=== PATIENT | male | born 1955 | race Two or more races ===

== ENCOUNTER 2024-12-04 05:58 | Day surgery (SDC) | payer MEDICARE, OTHER, SELFPAY ==
[2024-12-04] VITALS (11 sets, daily range): BP systolic 124–169; BP diastolic 60–79; BMI 24.0
[2024-12-04] MEDS: TYLENOL 1000 MG PO (06:33)
[2024-12-04] MEDS: NORMOSOL-R/PLASMALYTE-A 1000 IV (06:33)
[2024-12-04 07:01] LABS: INR 1.09; PT 14.4 Sec (11.4-14.6)
--- NOTE | 2024-12-04 08:56 | W.IMMPOSTOP ---
Surgical Immed Post Op Note
-
Primary Surgeon: Vicki
Assisting: Mitchel RIVAS
Pre-op Diagnosis: Left inguinal hernia
Post-op Diagnosis: Left inguinal hernia, umbilical hernia
Procedure Performed: Robot assisted laparoscopic repair of left inguinal hernia
Anesthesia Type: GETA
Specimen / Cultures: None
Estimated Blood Loss: 5cc
Complications: None immediate
Operative Findings: Left direct defect, pseudosac everted and secured to Cm's with 2-0 vicryl; 8mm umbilical defect closed with 2-0 PDS stratafix suture; XL MID 3D Max
--- NOTE | 2024-12-04 08:58 | OR.RPT ---
Operative Report
Operative Report
Primary Surgeon: Vicki
Assisting: Mitchel RIVAS
Pre-op Diagnosis: Left inguinal hernia
Post-op Diagnosis: Left inguinal hernia, incarcerated umbilical hernia
Procedure Performed: Robot assisted laparoscopic repair of left inguinal hernia and primary repair of incarcerated umbilical hernia
Anesthesia Type: GETA
Specimen / Cultures: None
Estimated Blood Loss: 5cc
Complications: None immediate
Operative Findings: Left direct defect, pseudosac everted and secured to Cm's with 2-0 vicryl; 8mm umbilical defect closed with 2-0 PDS stratafix suture; XL MID 3D Max
Date of surgery: 12/04/24
Indications:� This 69M developed a symptomatic left inguinal hernia. Robot assisted laparoscopic repair was planned.
Description of procedure:� The patient was taken to the operating room and positioned into supine position. The patient�s abdomen was prepped and draped in standard sterile fashion. A time-out was completed verifying correct patient, procedure,
site, positioning, and implants and special equipment prior to beginning this procedure.
The groin hernia was manually reduced. A stab incision was made in the left upper quadrant, a Veress needle was inserted and proper position was confirmed by aspiration and saline drop test. Following this, pneumoperitoneum was created with
insufflation of carbon dioxide to 12 mmHg. Then a 8mm robotic trocar was inserted above and to the left of the umbilicus. A laparoscope was inserted and the area of initial trocar entry and Veress needle placement were both inspected and no injuries
were found. Two 8mm trocars were then placed lateral to the rectus sheath under direct visualization.
Both inguinal regions were inspected and the median umbilical ligament, medial umbilical ligament, and lateral umbilical fold were identified. Attention was turned to the left groin. The peritoneum was incised transversely above the defect and a
flap was developed in the caudad direction. Cm�s ligament was identified ultimately dissected to its junction with the iliac vein and the space of Retzius was developed bluntly.� The dissection was continued inferiorly to the iliopubic tract,
with care taken to avoid injury to the femoral branch of the genitofemoral nerve and the lateral femoral cutaneous nerve. The cord structures were parietalized.
The direct space was inspected and a hernia defect was identified and reduced by gentle traction. The pseudosac was everted and secured to Cm's ligament with 2-0 vicryl suture. The femoral space was inspected no defect was identified.� The
indirect space was inspected and no hernia was identified. The canal was inspected and a small cord lipoma was identified and reduced by gentle traction.
An 8mm umbilical defect was identified and incarcerated fatty contents reduced. The defect was closed with 2-0 PDS stratafix suture.
Extra large left MID 3D max mesh was passed through a trocar. The mesh was placed into the preperitoneal space and moved into position to lay flat and completely cover the direct, indirect, and femoral spaces with overlap at the midline. The mesh
was secured into place using 2-0 vicryl suture to Cm�s ligament medially and laterally. Care was taken to avoid the inferolateral triangles containing the iliac vessels and genital nerves. The peritoneal flap was closed over the mesh and secured
with 2-0 monocryl stratafix suture in similar positions of safety. A 14g angiocath was used to decompress the preperitoneal space revealing good seal and all mesh in good position without folding or curling.
After ensuring adequate hemostasis, the trocars were removed and the pneumoperitoneum allowed to escape. The trocar incisions were closed at the skin level using 4-0 monocryl and topical skin adhesive. All counts were correct and the patient
tolerated the procedure well and was taken to the postanesthesia care unit in stable condition.
The assistance of Mitchel RIVAS was required due to the complexity of the procedure. During the procedure she assisted with retraction, resection, and closure of the wound.
[2024-12-04] MEDS: TYLENOL 650 MG PO (12:47)
== END 2024-12-04 13:00 | disposition home or self-care (01) ==
LOC: SDS 05:58
PROVIDERS: ATTENDING PHYSICIAN Surgery
PROC: 0WQF0ZZ Repair Abdominal Wall, Open Approach (ICD-10-PCS; 2024-12-04)
PROC: 8E0W4CZ Robotic Assisted Procedure of Trunk Region, Percutaneous Endoscopic Approach (ICD-10-PCS; 2024-12-04)
PROC: 0YU64JZ Supplement Left Inguinal Region with Synthetic Substitute, Percutaneous Endoscopic Approach (ICD-10-PCS; 2024-12-04)
DX: K40.90 Unilateral inguinal hernia, without obstruction or gangrene, not specified as recurrent (principal); K42.0 Umbilical hernia with obstruction, without gangrene; D17.6 Benign lipomatous neoplasm of spermatic cord
CPT/HCPCS: 49650; 49592; 85610; C1781